=== PATIENT | female | born 1945 | race Caucasian/White ===

== ENCOUNTER → 2016-11-04 | Outpatient (CLI) | payer MEDICARE, OTHER ==
[~2016-11-04] MED LIST: CALTRATE-600 W600 MG PO; CENTRUM1 TAB PO; ELAVIL50 MG PO; FISH OIL CONC1000 MG PO; FOSAMAX 70MG TA70 MG PO; GLUCOSAMINE/CHONDROI PO; MAGNESIUM OXIDE PO
== END ==
LOC: MC.RAD 13:00
DX: Z12.31 Encounter for screening mammogram for malignant neoplasm of breast (principal)

== ENCOUNTER 2017-10-01 21:12 | Inpatient (IN) | payer MEDICARE, OTHER ==
[~2017-10-01] VITALS: Ht 172.7 cm; Wt 66.8 kg
[~2017-10-01 21:12] MED LIST changes: +GLUCOSAMINE & C1 CAP PO; -GLUCOSAMINE/CHONDROI PO
[2017-10-01] MEDS ORDERED: MAG-OX 400400 MG/TAB PO (21:33)
[2017-10-01] MEDS ORDERED: GLUCOSAMINE & C1 CA2 PO (21:33)
[2017-10-01] MEDS ORDERED: ASMANEX TW0.22 MG/A1 IH (21:34)
[2017-10-01] MEDS ORDERED: TOPROL XL 25MG25 MG PO (21:34)
[2017-10-01] MEDS ORDERED: SINGULAIR 110 MG/TAB PO (21:34)
[2017-10-01] MEDS ORDERED: VITAMIN D31000 I1 PO (21:35)
[2017-10-01] MEDS ORDERED: CALCITRATE 3151 TAB PO (21:35)
[2017-10-01] MEDS ORDERED: REFRESH PLUS 00.4 M1 OP (21:36)
[2017-10-01] MEDS ORDERED: EPA FISH OIL1 SGL PO (21:36)
[2017-10-01] MEDS ORDERED: 00186-0370-20 IH (21:37)
[2017-10-01] MEDS ORDERED: MULTIPLE VITAMI1 CAP PO (21:38)
[2017-10-01 22:40] LABS: BASO # 0.1 (0.0-0.2); BASO % 0.6 % (0.0-2.0); EOS # 0.1 (0.0-0.7); EOS % 0.7 % (0-4.0); GRAN # 8.2 (1.4-6.5); HEMATOCRIT 41.2 % (37.0-47.0); HEMOGLOBIN 13.6 g/dl (12.5-16.0); LYMPH # 1.5 (1.2-3.4); LYMPH % 13.7 % (20.0-51.0); MEAN CELL VOLUME 88 fl (80.0-100.0); MEAN CORPUSCULAR HEMOGLOBIN 29 pg (27.0-31.0); MEAN CORPUSCULAR HGB CONC 33 g/dl (33.0-37.0); MEAN PLATELET VOLUME 9.5 fl (7.4-10.4); MONO # 0.8 (0.1-0.6); MONO % 7.4 % (1.7-9.3); PLATELET COUNT 282 K/mm3 (130-400); REDCELL DISTRIBUTION WIDTH-CV 12.4 % (11.5-14.5)
[2017-10-01 22:49] LABS: COLLECTION METHOD CATHETER
[2017-10-01 22:50] LABS: BILIRUBIN,TOTAL 0.3 mg/dL (0.0-1.0); CALCIUM 9.6 mg/dL (8.4-10.2); CREATININE, serum 0.59 mg/dL (0.52-1.25); POTASSIUM 3.9 mmol/L (3.4-5.0); TOTAL PROTEIN 6.9 gm/dL (6.4-8.2)
[2017-10-01 22:54] LABS: PH 6 (5-8); SQUAMOUS EPITHELIAL None Seen /hpf; URINE APPEARANCE Clear; URINE BACTERIA Rare /hpf; URINE BILIRUBIN Negative (NEGATIVE); URINE BLOOD Negative (NEGATIVE); URINE COLOR Straw; URINE GLUCOSE Negative (NEGATIVE); URINE KETONE Negative (NEGATIVE); URINE LEUKOCYTE ESTERASE Negative (NEGATIVE); URINE NITRATE Negative (NEGATIVE); URINE PROTEIN(semi-quant) Negative (NEGATIVE); URINE RBC 0-2 /hpf; URINE UROBILINOGEN Negative (NEGATIVE)
[2017-10-01 23:25] VITALS: BP 120/54; PULSE 88; TEMP 98.2
[2017-10-01] MEDS ORDERED: AMITRIPTYLINE H50 M1 PO (23:56)
[2017-10-02] VITALS (11 sets, daily range): BP systolic 104–136; BP diastolic 50–84; PULSE 73–96; TEMP 97.5–98.2
[2017-10-02 00:47] LABS: INR 1.1 (0.8-3.0); PROTHROMBIN TIME 12.9 SECONDS (9.7-12.8)
[2017-10-02] MEDS ORDERED: PROBIOTIC GOLD1 EACH PO (01:05)
[2017-10-02 07:00] LABS: BASO # 0.1 (0.0-0.2); BASO % 0.6 % (0.0-2.0); EOS # 0.1 (0.0-0.7); GRAN # 6.7 (1.4-6.5); GRAN % 78.4 % (42.2-75.2); LYMPH # 1.1 (1.2-3.4); LYMPH % 12.5 % (20.0-51.0); MEAN CELL VOLUME 87 fl (80.0-100.0); MEAN CORPUSCULAR HEMOGLOBIN 29 pg (27.0-31.0); MEAN CORPUSCULAR HGB CONC 33 g/dl (33.0-37.0); MEAN PLATELET VOLUME 9.8 fl (7.4-10.4); MONO # 0.6 (0.1-0.6); MONO % 7.3 % (1.7-9.3); PLATELET COUNT 236 K/mm3 (130-400); RED BLOOD COUNT 4.12 M/mm3 (4.10-5.30); REDCELL DISTRIBUTION WIDTH-CV 12.4 % (11.5-14.5)
[2017-10-02 07:19] LABS: ALBUMIN 3.2 gm/dL (3.5-5.0); BILIRUBIN,TOTAL 0.5 mg/dL (0.0-1.0); CALCIUM 8.3 mg/dL (8.4-10.2); CREATININE, serum 0.52 mg/dL (0.52-1.25); POTASSIUM 3.9 mmol/L (3.4-5.0); TOTAL PROTEIN 5.9 gm/dL (6.4-8.2)
[2017-10-03] VITALS (7 sets, daily range): BP systolic 104–121; BP diastolic 46–64; PULSE 87–103; TEMP 98–99.2
[2017-10-03 06:41] LABS: HEMOGLOBIN 10.5 g/dl (12.5-16.0)
[2017-10-03 06:42] LABS: HEMATOCRIT 31.8 % (37.0-47.0)
[2017-10-04] VITALS (8 sets, daily range): BP systolic 116–172; BP diastolic 32–79; PULSE 60–111; TEMP 98.4–98.7
[2017-10-04 01:51] LABS: BASO # 0.1 (0.0-0.2); BASO % 0.8 % (0.0-2.0); EOS # 0.4 (0.0-0.7); EOS % 4.2 % (0-4.0); GRAN # 7.2 (1.4-6.5); GRAN % 70.3 % (42.2-75.2); HEMATOCRIT 36.7 % (37.0-47.0); HEMOGLOBIN 12.3 g/dl (12.5-16.0); LYMPH # 1.5 (1.2-3.4); LYMPH % 14.3 % (20.0-51.0); MEAN CELL VOLUME 86 fl (80.0-100.0); MEAN CORPUSCULAR HEMOGLOBIN 29 pg (27.0-31.0); MEAN CORPUSCULAR HGB CONC 34 g/dl (33.0-37.0); MEAN PLATELET VOLUME 9.7 fl (7.4-10.4); PLATELET COUNT 242 K/mm3 (130-400); RED BLOOD COUNT 4.25 M/mm3 (4.10-5.30); REDCELL DISTRIBUTION WIDTH-CV 12.6 % (11.5-14.5)
[2017-10-04 02:01] LABS: ALANINE AMINOTRANSFERASE 123 U/L (9-52); ALBUMIN 3.2 gm/dL (3.5-5.0); ALKALINE PHOSPHATASE 158 U/L (50-136); ANION GAP 8 mmol/L (7-16); AST,SGOT 124 U/L (15-37); BILIRUBIN,TOTAL 0.5 mg/dL (0.0-1.0); BLOOD UREA NITROGEN 8 mg/dL (7-17); CALCIUM 8.4 mg/dL (8.4-10.2); CARBON DIOXIDE 24 mmol/L (22-30); CHLORIDE 101 mmol/L (98-107); CREATININE, serum 0.55 mg/dL (0.52-1.25); GLUCOSE 139 mg/dL (74-106); MAGNESIUM 1.8 mg/dL (1.6-2.3); POTASSIUM 3.9 mmol/L (3.4-5.0); SODIUM 134 mmol/L (137-145)
[2017-10-04 02:16] LABS: TROPONIN-I < 0.012 ng/mL (0.000-0.034)
[2017-10-04 02:36] LABS: INR 1.3 (0.8-3.0); PROTHROMBIN TIME 14.6 SECONDS (9.7-12.8)
[2017-10-04 02:39] LABS: PARTIAL THROMBOPLASTIN TIME 28.1 SECONDS (26.0-37.0)
[2017-10-04 04:44] LABS: HEMOGLOBIN 11.9 g/dl (12.5-16.0)
[2017-10-04 04:46] LABS: HEMATOCRIT 34.2 % (37.0-47.0)
[2017-10-05] VITALS: BP 108/62; PULSE 75; TEMP 98.2
[2017-10-05 03:40] VITALS: BP 108/48; PULSE 73; TEMP 98.5
[2017-10-05 07:47] VITALS: BP 106/60; PULSE 74; TEMP 97.5
[2017-10-05 08:10] LABS: HEMATOCRIT 33.1 % (37.0-47.0); HEMOGLOBIN 11.1 g/dl (12.5-16.0)
[2017-10-05 08:29] LABS: ALBUMIN 2.8 gm/dL (3.5-5.0); BILIRUBIN,TOTAL 0.5 mg/dL (0.0-1.0); CALCIUM 8.4 mg/dL (8.4-10.2); CREATININE, serum 0.52 mg/dL (0.52-1.25); TOTAL PROTEIN 5.7 gm/dL (6.4-8.2)
[2017-10-05 08:47] LABS: BASO # 0.1 (0.0-0.2); BASO % 0.7 % (0.0-2.0); EOS # 0.5 (0.0-0.7); EOS % 4.9 % (0-4.0); GRAN # 6.5 (1.4-6.5); GRAN % 67.3 % (42.2-75.2); HEMATOCRIT 32.6 % (37.0-47.0); HEMOGLOBIN 11.2 g/dl (12.5-16.0); LYMPH # 1.5 (1.2-3.4); LYMPH % 15.5 % (20.0-51.0); MEAN CELL VOLUME 88 fl (80.0-100.0); MEAN CORPUSCULAR HEMOGLOBIN 30 pg (27.0-31.0); MEAN CORPUSCULAR HGB CONC 34 g/dl (33.0-37.0); MEAN PLATELET VOLUME 10.5 fl (7.4-10.4); MONO # 1.1 (0.1-0.6); MONO % 11.1 % (1.7-9.3); PLATELET COUNT 251 K/mm3 (130-400)
[2017-10-05] MEDS ORDERED: IPRATROPIUM BROM3 M1 IH (11:00)
[2017-10-05] MEDS ORDERED: ELIQUIS 5MG PO (11:00)
[2017-10-05] MEDS ORDERED: BETAPACE 80MG80 MG PO (11:02)
[2017-10-05] MEDS ORDERED: NORCO 325 MG-51 TAB PO (11:04)
[2017-10-05] MEDS ORDERED: GOOD NEIGH1200 MG/15 PO (11:05)
[2017-10-05] MEDS ORDERED: DULCOLAX S10 MG/SUPP RC (11:05)
[2017-10-05 11:44] VITALS: BP 106/41; PULSE 72; TEMP 97.5
[2017-10-05] MEDS ORDERED: CELEBREX 200MG200 MG PO (13:22)
[2017-10-05] MEDS ORDERED: NATURAL C500 MG PO (13:24)
[2017-10-05] MEDS ORDERED: OSCAL 500 TAB500 MG PO (13:25)
[2017-10-05] MEDS ORDERED: SENOKOT S 50 MG1 TAB PO (13:27)
[2017-10-05] MEDS ORDERED: NS INT FLUSH 1010 ML IV ×2 (13:58→14:06)
[2017-10-05] MEDS ORDERED: FLOVENT 110MCG7.9 GM IH (14:02)
[2017-10-05] MEDS ORDERED: ASPIRIN 32325 MG/TA1 PO (14:16)
== END 2017-10-05 12:26 | DRG 470 ==
LOC: COL.ER 21:12 → SURG 22:43
PROVIDERS: Emergency Medicine; Nurse Practitioner; Nurse Practitioner Family; Orthopaedic Surgery Sports Medicine; Physician Assistant
PROC: 0SRS0J9 Replacement of Left Hip Joint, Femoral Surface with Synthetic Substitute, Cemented, Open Approach (ICD-10-PCS; principal; 2017-10-02 08:30)
DX: S72.012A Unspecified intracapsular fracture of left femur, initial encounter for closed fracture (principal); D62 Acute posthemorrhagic anemia; W18.30XA Fall on same level, unspecified, initial encounter; J45.909 Unspecified asthma, uncomplicated; I48.0 Paroxysmal atrial fibrillation; M21.372 Foot drop, left foot; M15.9 Polyosteoarthritis, unspecified
CPT/HCPCS: 99222-AI; 99232-AI; 99233-AI; 99239; A9284; C1776; J0690; J2250; J2270; J2405; J2704; J2795; J3010; J7030; J7120

== ENCOUNTER 2017-10-05 12:45 | Inpatient (IN) | payer MEDICARE, OTHER ==
[~2017-10-05] VITALS: Ht 172.7 cm; Wt 63.8 kg
[~2017-10-05 12:45] MED LIST changes: +00186-0370-20 IH; +AMITRIPTYLINE H50 M1 PO; +ASMANEX TW0.22 MG/A1 IH; +BETAPACE 80MG80 MG PO; +CALCITRATE 3151 TAB PO; +DULCOLAX S10 MG/SUPP RC; +ELIQUIS 5MG PO; +EPA FISH OIL1 SGL PO; +GLUCOSAMINE & C1 CA2 PO; +GOOD NEIGH1200 MG/15 PO; +IPRATROPIUM BROM3 M1 IH; +MAG-OX 400400 MG/TAB PO; +MULTIPLE VITAMI1 CAP PO; +NORCO 325 MG-51 TAB PO; +PROBIOTIC GOLD1 EACH PO; +REFRESH PLUS 00.4 M1 OP; +SINGULAIR 110 MG/TAB PO; +TOPROL XL 25MG25 MG PO; +VITAMIN D31000 I1 PO
[2017-10-05] MEDS ORDERED: CELEBREX 200MG200 MG PO (13:22)
[2017-10-05] MEDS ORDERED: NATURAL C500 MG PO (13:24)
[2017-10-05] MEDS ORDERED: OSCAL 500 TAB500 MG PO (13:25)
[2017-10-05] MEDS ORDERED: SENOKOT S 50 MG1 TAB PO (13:27)
[2017-10-05] MEDS ORDERED: NS INT FLUSH 1010 ML IV ×2 (13:58→14:06)
[2017-10-05] MEDS ORDERED: FLOVENT 110MCG7.9 GM IH (14:02)
[2017-10-05] MEDS ORDERED: ASPIRIN 32325 MG/TA1 PO (14:16)
[2017-10-05 16:21] VITALS: BP 106/48; PULSE 77; TEMP 98.6
[2017-10-05 21:30] VITALS: BP 115/43; PULSE 81
[2017-10-06 06:00] VITALS: BP 106/44; PULSE 74; TEMP 97.9
[2017-10-06 16:38] VITALS: BP 109/47; PULSE 67; TEMP 97.9
[2017-10-07 04:24] VITALS: BP 113/40; PULSE 74; TEMP 98.3
[2017-10-07 07:52] LABS: ALBUMIN 2.7 gm/dL (3.5-5.0); BILIRUBIN,TOTAL 0.5 mg/dL (0.0-1.0); CALCIUM 8.4 mg/dL (8.4-10.2); CREATININE, serum 0.6 mg/dL (0.52-1.25); POTASSIUM 4.1 mmol/L (3.4-5.0); TOTAL PROTEIN 5.5 gm/dL (6.4-8.2)
[2017-10-07 16:19] VITALS: BP 112/47; PULSE 68; TEMP 98.6
[2017-10-08 06:00] VITALS: BP 108/42; PULSE 68; TEMP 98.2
[2017-10-08 16:01] VITALS: BP 110/45; PULSE 70; TEMP 98.3
[2017-10-09 06:00] VITALS: BP 114/41; PULSE 65; TEMP 98.3
[2017-10-09 16:36] VITALS: BP 106/58; PULSE 68; TEMP 98.7
[2017-10-10 04:52] VITALS: BP 107/48; PULSE 63; TEMP 98.4
[2017-10-10 15:47] VITALS: BP 103/48; PULSE 68; TEMP 98.6
[2017-10-11 06:30] VITALS: BP 114/45; PULSE 64; TEMP 97.8
[2017-10-11 15:11] VITALS: BP 108/38; PULSE 63; TEMP 98.3
[2017-10-12 05:57] VITALS: BP 118/51; PULSE 67; TEMP 98.4
[2017-10-12 15:24] VITALS: BP 105/47; PULSE 67; TEMP 97.9
[2017-10-13 04:43] VITALS: BP 102/57; PULSE 76; TEMP 98.3
[2017-10-13] MEDS ORDERED: TYLENOL 325MG325 MG PO (10:23)
[2017-10-13] MEDS ORDERED: NORCO 325 MG-51 TAB PO (10:25)
[2017-10-13] MEDS ORDERED: VITAMINC1000TA PO (16:21)
[2017-10-13] MEDS ORDERED: ELIQUIS 5MG PO (16:21)
[2017-10-13] MEDS ORDERED: BETAPACE 80MG80 MG PO (16:21)
== END 2017-10-13 18:10 | disposition home or self-care (01) | DRG 561 ==
PROVIDERS: Internal Medicine
DX: S72.012D Unspecified intracapsular fracture of left femur, subsequent encounter for closed fracture with routine healing (principal); M21.372 Foot drop, left foot; I48.0 Paroxysmal atrial fibrillation; J45.909 Unspecified asthma, uncomplicated; R63.6 Underweight; Z68.21 Body mass index [BMI] 21.0-21.9, adult
CPT/HCPCS: 99222-AI; 99232-AI; 99239

== ENCOUNTER 2017-10-19 16:18 | Emergency (ER) | payer MEDICARE, OTHER ==
[~2017-10-19] VITALS: Ht 172.7 cm; Wt 61.4 kg
[~2017-10-19 16:18] MED LIST changes: +ASPIRIN 32325 MG/TA1 PO; +CELEBREX 200MG200 MG PO; +FLOVENT 110MCG7.9 GM IH; +NATURAL C500 MG PO; +NS INT FLUSH 1010 ML IV; +OSCAL 500 TAB500 MG PO; +SENOKOT S 50 MG1 TAB PO; +TYLENOL 325MG325 MG PO; +VITAMINC1000TA PO
[2017-10-19 16:25] VITALS: BP 110/59; TEMP 99.8
[2017-10-19 17:05] LABS: BASO # 0.1 (0.0-0.2); BASO % 1.6 % (0.0-2.0); EOS # 0.1 (0.0-0.7); EOS % 1.6 % (0-4.0); GRAN # 4.7 (1.4-6.5); HEMATOCRIT 37.2 % (37.0-47.0); HEMOGLOBIN 12.3 g/dl (12.5-16.0); LYMPH # 1.8 (1.2-3.4); LYMPH % 24.3 % (20.0-51.0); MEAN CELL VOLUME 88 fl (80.0-100.0); MEAN CORPUSCULAR HEMOGLOBIN 29 pg (27.0-31.0); MEAN CORPUSCULAR HGB CONC 33 g/dl (33.0-37.0); MEAN PLATELET VOLUME 9.4 fl (7.4-10.4); MONO # 0.8 (0.1-0.6); MONO % 10.1 % (1.7-9.3); PLATELET COUNT 493 K/mm3 (130-400); RED BLOOD COUNT 4.24 M/mm3 (4.10-5.30); REDCELL DISTRIBUTION WIDTH-CV 12.8 % (11.5-14.5)
[2017-10-19 17:40] LABS: ALBUMIN 3.3 gm/dL (3.5-5.0); BILIRUBIN,TOTAL 0.2 mg/dL (0.0-1.0); CALCIUM 8.7 mg/dL (8.4-10.2); CREATININE, serum 0.53 mg/dL (0.52-1.25); POTASSIUM 4.1 mmol/L (3.4-5.0); TOTAL PROTEIN 6.1 gm/dL (6.4-8.2)
[2017-10-19 18:19] VITALS: PULSE 80
== END 2017-10-19 18:22 | disposition home or self-care (01) ==
LOC: COL.ER 16:18
PROVIDERS: Emergency Medicine
DX: M79.604 Pain in right leg (principal); R25.2 Cramp and spasm; I48.91 Unspecified atrial fibrillation; J45.909 Unspecified asthma, uncomplicated

== ENCOUNTER → 2017-12-21 | Outpatient (CLI) | payer MEDICARE, OTHER | LOC: MC.RAD 11-05 09:40 | DX: Z12.31 Encounter for screening mammogram for malignant neoplasm of breast (principal) ==

== ENCOUNTER 2018-01-07 12:08 | Emergency (ER) | payer MEDICARE, OTHER ==
[~2018-01-07] VITALS: Ht 172.7 cm; Wt 59.1 kg
[2018-01-07 12:09] VITALS: TEMP 97.6
[2018-01-07] MEDS ORDERED: NEURONTIN100 MG/CAP PO (12:20)
[2018-01-07] MEDS ORDERED: ELIQUIS 5MG PO (12:21)
[2018-01-07] MEDS ORDERED: 00186-0370-20 IH (12:21)
[2018-01-07] MEDS ORDERED: BETAPACE 120MG120 MG PO (12:21)
[2018-01-07] MEDS ORDERED: CALCIUM CITRAT200 M2 (12:22)
[2018-01-07] MEDS ORDERED: SINGULAIR 110 MG/TAB PO (12:22)
[2018-01-07] MEDS ORDERED: NATURAL MAGNES200 MG PO (12:23)
[2018-01-07] MEDS ORDERED: VITAMIND3 5000 (12:23)
[2018-01-07] MEDS ORDERED: OMEGA-3 FISH1000 MG PO (12:24)
[2018-01-07] MEDS ORDERED: MULTI VITAMINS1 TAB PO (12:24)
[2018-01-07] MEDS ORDERED: GLUCOSAMINE MSM1 TAB PO (12:24)
[2018-01-07] MEDS ORDERED: REFRESH 1 ML1 ML OP (12:25)
[2018-01-07 13:12] LABS: BASO # 0.1 (0.0-0.2); BASO % 1.3 % (0.0-2.0); EOS # 0.1 (0.0-0.7); EOS % 1.5 % (0-4.0); GRAN # 4.4 (1.4-6.5); GRAN % 61.2 % (42.2-75.2); HEMATOCRIT 41.3 % (37.0-47.0); HEMOGLOBIN 13.6 g/dl (12.5-16.0); LYMPH # 1.8 (1.2-3.4); LYMPH % 25.4 % (20.0-51.0); MEAN CELL VOLUME 86 fl (80.0-100.0); MEAN CORPUSCULAR HEMOGLOBIN 28 pg (27.0-31.0); MEAN CORPUSCULAR HGB CONC 33 g/dl (33.0-37.0); MEAN PLATELET VOLUME 9.5 fl (7.4-10.4); MONO # 0.7 (0.1-0.6); PLATELET COUNT 270 K/mm3 (130-400); REDCELL DISTRIBUTION WIDTH-CV 12.5 % (11.5-14.5)
[2018-01-07 13:22] LABS: COLLECTION METHOD CLEAN CATCH
[2018-01-07 13:26] LABS: ALANINE AMINOTRANSFERASE 27 U/L (9-52); ALBUMIN 3.5 gm/dL (3.5-5.0); ALKALINE PHOSPHATASE 70 U/L (50-136); ANION GAP 6 mmol/L (7-16); AST,SGOT 28 U/L (15-37); BILIRUBIN,TOTAL 0.4 mg/dL (0.0-1.0); BLOOD UREA NITROGEN 14 mg/dL (7-17); CALCIUM 8.7 mg/dL (8.4-10.2); CARBON DIOXIDE 31 mmol/L (22-30); CHLORIDE 107 mmol/L (98-107); CREATININE, serum 0.51 mg/dL (0.52-1.25); GLUCOSE 85 mg/dL (74-106); POTASSIUM 3.8 mmol/L (3.4-5.0); SODIUM 144 mmol/L (137-145); TOTAL PROTEIN 6.1 gm/dL (6.4-8.2)
[2018-01-07 13:31] LABS: PH 8 (5-8); SQUAMOUS EPITHELIAL None Seen /hpf; URINE APPEARANCE Clear; URINE BACTERIA None Seen /hpf; URINE BILIRUBIN Negative (NEGATIVE); URINE BLOOD Negative (NEGATIVE); URINE COLOR Straw; URINE GLUCOSE Negative (NEGATIVE); URINE KETONE Negative (NEGATIVE); URINE LEUKOCYTE ESTERASE Negative (NEGATIVE); URINE NITRATE Negative (NEGATIVE); URINE PROTEIN(semi-quant) Negative (NEGATIVE); URINE RBC 0-2 /hpf; URINE UROBILINOGEN Negative (NEGATIVE); URINE WBC 0-2 /hpf
[2018-01-07 13:39] LABS: TROPONIN-I < 0.012 ng/mL (0.000-0.034)
[2018-01-07] MEDS ORDERED: ANTIVERT 25MG25 MG PO (13:53)
[2018-01-07 14:30] VITALS: BP 115/91; PULSE 81
== END 2018-01-07 14:40 | disposition home or self-care (01) ==
LOC: COL.ER 12:08 → EDBD 12:09 → COL.ER 12:09
PROVIDERS: Emergency Medicine
DX: R42 Dizziness and giddiness (principal); I48.91 Unspecified atrial fibrillation; Z79.01 Long term (current) use of anticoagulants
CPT/HCPCS: J7030

== ENCOUNTER → 2018-01-19 | Outpatient (CLI) | payer MEDICARE, OTHER ==
[~2018-01-19] MED LIST changes: +ANTIVERT 25MG25 MG PO; +BETAPACE 120MG120 MG PO; +CALCIUM CITRAT200 M2; +GLUCOSAMINE MSM1 TAB PO; +MULTI VITAMINS1 TAB PO; +NATURAL MAGNES200 MG PO; +NEURONTIN100 MG/CAP PO; +OMEGA-3 FISH1000 MG PO; +REFRESH 1 ML1 ML OP; +VITAMIND3 5000
== END ==
LOC: COL.VAS 09:31
DX: G93.89 Other specified disorders of brain (principal); G31.9 Degenerative disease of nervous system, unspecified; I65.23 Occlusion and stenosis of bilateral carotid arteries

== ENCOUNTER 2018-01-21 14:00 | Outpatient (RCR) | payer MEDICARE, OTHER | END 2018-01-27 | disposition home or self-care (01) | LOC: MKS.ESL.PT | DX: S72.012D Unspecified intracapsular fracture of left femur, subsequent encounter for closed fracture with routine healing (principal); W18.39XD Other fall on same level, subsequent encounter; M21.372 Foot drop, left foot; Z79.01 Long term (current) use of anticoagulants; Z79.899 Other long term (current) drug therapy | CPT/HCPCS: G8978-GP; G8979-GP ==

== ENCOUNTER 2018-03-09 08:15 | Outpatient (RCR) | payer MEDICARE, OTHER | END 2018-03-10 09:59 | disposition home or self-care (01) | LOC: MKS.ESL.PT 08:15 | DX: S72.002D Fracture of unspecified part of neck of left femur, subsequent encounter for closed fracture with routine healing (principal); M21.372 Foot drop, left foot; W17.89XD Other fall from one level to another, subsequent encounter; Z79.01 Long term (current) use of anticoagulants; Z79.891 Long term (current) use of opiate analgesic; Z79.899 Other long term (current) drug therapy ==

== ENCOUNTER 2018-05-23 07:45 | Outpatient (CLI) | payer MEDICARE, OTHER ==
--- NOTE | 2018-05-21 12:00 | NUR ---
LEFT MESSAGE IN REGARDS TO PROCEDURE ON WEDNESDAY.
[~2018-05-23] VITALS: Ht 172.8 cm; Wt 62.0 kg
[2018-05-23 08:26] VITALS: BP 111/68; PULSE 53; TEMP 98.2
[2018-05-23] MEDS ORDERED: ASPIRIN E.C. 8181 MG PO (08:29)
[2018-05-23] MEDS ORDERED: CLARITIN 1010 MG/TAB PO (08:49)
[2018-05-23] MEDS ORDERED: CEPHALEXIN500 M1 PO (09:44)
[2018-05-23 09:53] VITALS: BP 123/72; PULSE 49
--- NOTE | 2018-05-23 10:05 | NUR ---
Pt discharged per ambulation.
== END 2018-05-23 11:15 | disposition home or self-care (01) ==
LOC: COL.CAR 07:45
DX: I48.0 Paroxysmal atrial fibrillation (principal); J45.909 Unspecified asthma, uncomplicated; I49.3 Ventricular premature depolarization; M19.90 Unspecified osteoarthritis, unspecified site; Z79.01 Long term (current) use of anticoagulants; Z88.5 Allergy status to narcotic agent; Z82.5 Family history of asthma and other chronic lower respiratory diseases; Z82.49 Family history of ischemic heart disease and other diseases of the circulatory system; Z82.3 Family history of stroke; Z88.2 Allergy status to sulfonamides

== ENCOUNTER → 2018-11-01 | Outpatient (CLI) | payer MEDICARE, OTHER ==
[~2018-11-01] MED LIST changes: +ASPIRIN E.C. 8181 MG PO; +CEPHALEXIN500 M1 PO; +CLARITIN 1010 MG/TAB PO
== END ==
LOC: COL.RAD 16:08
DX: R13.12 Dysphagia, oropharyngeal phase (principal)

== ENCOUNTER 2018-11-30 13:45 | Outpatient (RCR) | payer MEDICARE, OTHER ==
[2019-01-01] MEDS ORDERED: DOXYCYCLINE 10100 MG PO ×2 (07:53)
[2019-01-01] MEDS ORDERED: AMOXICILLIN 50500 MG PO ×2 (07:53)
[2019-01-02] MEDS ORDERED: AMOXICILLIN 50500 MG PO (10:58)
[2019-01-02] MEDS ORDERED: DOXYCYCLINE 10100 MG PO (10:58)
== END 2019-01-23 | disposition home or self-care (01) ==
LOC: WSST
DX: R13.12 Dysphagia, oropharyngeal phase (principal)

== ENCOUNTER 2019-01-01 02:47 | Emergency (ER) | payer MEDICARE, OTHER ==
[~2019-01-01] VITALS: Wt 56.8 kg
[2019-01-01 03:34] LABS: BASO # 0.1 (0.0-0.2); BASO % 0.6 % (0.0-2.0); EOS # 0.1 (0.0-0.7); EOS % 0.7 % (0-4.0); GRAN # 8.1 (1.4-6.5); GRAN % 74.9 % (42.2-75.2); HEMATOCRIT 42.3 % (37.0-47.0); HEMOGLOBIN 13.8 g/dl (12.5-16.0); LYMPH # 1.4 (1.2-3.4); LYMPH % 13.2 % (20.0-51.0); MEAN CELL VOLUME 89 fl (80.0-100.0); MEAN CORPUSCULAR HEMOGLOBIN 29 pg (27.0-31.0); MEAN CORPUSCULAR HGB CONC 33 g/dl (33.0-37.0); MEAN PLATELET VOLUME 9.5 fl (7.4-10.4); MONO # 1.1 (0.1-0.6); MONO % 10.2 % (1.7-9.3); PLATELET COUNT 294 K/mm3 (130-400); RED BLOOD COUNT 4.75 M/mm3 (4.10-5.30); REDCELL DISTRIBUTION WIDTH-CV 12.3 % (11.5-14.5)
[2019-01-01 03:38] LABS: INR 1.4 (0.8-3.0); PROTHROMBIN TIME 17.1 SECONDS (9.7-12.8)
[2019-01-01 03:43] LABS: ALANINE AMINOTRANSFERASE 31 U/L (9-52); ALBUMIN 3.9 gm/dL (3.5-5.0); ALKALINE PHOSPHATASE 96 U/L (50-136); ANION GAP 9 mmol/L (7-16); AST,SGOT 33 U/L (15-37); BILIRUBIN,TOTAL 0.7 mg/dL (0.0-1.0); BLOOD UREA NITROGEN 9 mg/dL (7-17); CALCIUM 9.3 mg/dL (8.4-10.2); CARBON DIOXIDE 30 mmol/L (22-30); CHLORIDE 100 mmol/L (98-107); CREATININE, serum 0.58 (0.52-1.25); GLUCOSE 115 mg/dL (74-106); LIPASE 49 U/L (23-300); MAGNESIUM 2.1 mg/dL (1.6-2.3); POTASSIUM 4.1 mmol/L (3.4-5.0); SODIUM 138 mmol/L (137-145)
[2019-01-01 03:55] LABS: TROPONIN-I < 0.012 ng/mL (0.000-0.035)
[2019-01-01] MEDS ORDERED: DOXYCYCLINE 10100 MG PO ×2 (07:53)
[2019-01-01] MEDS ORDERED: AMOXICILLIN 50500 MG PO ×2 (07:53)
[2019-01-01 08:45] VITALS: BP 93/59; PULSE 74; TEMP 98.7
[2019-01-02] MEDS ORDERED: AMOXICILLIN 50500 MG PO (10:58)
[2019-01-02] MEDS ORDERED: DOXYCYCLINE 10100 MG PO (10:58)
== END 2019-01-01 08:45 | disposition home or self-care (01) ==
LOC: COL.ER 02:47
PROVIDERS: Emergency Medicine
DX: J18.9 Pneumonia, unspecified organism (principal); I48.91 Unspecified atrial fibrillation; J45.909 Unspecified asthma, uncomplicated; Z79.01 Long term (current) use of anticoagulants
CPT/HCPCS: J0696; J1100; J7030; Q9967

== ENCOUNTER → 2020-07-05 | Outpatient (CLI) | payer MEDICARE, OTHER ==
[~2020-07-05] MED LIST changes: +AMOXICILLIN 50500 MG PO; +DOXYCYCLINE 10100 MG PO
== END ==
LOC: MC.RAD 07:07
DX: Z12.31 Encounter for screening mammogram for malignant neoplasm of breast (principal)

== ENCOUNTER → 2021-08-21 | Outpatient (CLI) | payer MEDICARE, OTHER | LOC: MC.RAD 08:00 | DX: Z12.31 Encounter for screening mammogram for malignant neoplasm of breast (principal) ==

== ENCOUNTER 2021-11-11 13:57 | Emergency (ER) | payer MEDICARE, OTHER ==
[~2021-11-11] VITALS: Ht 172.7 cm; Wt 57.7 kg
[2021-11-11 14:09] VITALS: TEMP 98.3
[2021-11-11 15:14] LABS: BASO # 0.1 K/mm3 (0.0-0.2); EOS # 0.1 K/mm3 (0.0-0.7); EOS % 1.4 % (0.0-4.0); GRAN # 3.4 K/mm3 (1.4-6.5); GRAN % 57.4 % (42.2-75.2); HEMATOCRIT 39.9 % (37.0-47.0); HEMOGLOBIN 13.3 g/dl (12.5-16.0); LYMPH # 1.7 K/mm3 (1.2-3.4); LYMPH % 29.4 % (20.0-51.0); MEAN CELL VOLUME 85 fl (80.0-100.0); MEAN CORPUSCULAR HEMOGLOBIN 28 pg (27-31); MEAN CORPUSCULAR HGB CONC 33 g/dl (33.0-37.0); MEAN PLATELET VOLUME 9.3 fl (7.4-10.4); MONO # 0.6 K/mm3 (0.1-0.6); MONO % 10.6 % (1.7-9.3); PLATELET COUNT 290 K/mm3 (130-400); RED BLOOD COUNT 4.69 M/mm3 (4.10-5.30); REDCELL DISTRIBUTION WIDTH-CV 12.7 % (11.5-14.5)
[2021-11-11 15:34] LABS: ALANINE AMINOTRANSFERASE 30 U/L (0-55); ALBUMIN 3.4 gm/dL (3.4-4.8); ALKALINE PHOSPHATASE 84 U/L (40-150); ANION GAP 9 mmol/L (7-16); AST,SGOT 19 U/L (5-34); BILIRUBIN,TOTAL 0.5 mg/dL (0.2-1.2); BLOOD UREA NITROGEN 11 mg/dL (10-20); C-REACTIVE PROTEIN 0.49 mg/dL (0.00-0.50); CALCIUM 9.4 mg/dL (8.4-10.2); CARBON DIOXIDE 27 mmol/L (23-31); CHLORIDE 105 mmol/L (98-107); GLUCOSE 103 mg/dL (70-99); POTASSIUM 4.2 mmol/L (3.5-4.5); SODIUM 141 mmol/L (136-145); TOTAL PROTEIN 6.4 gm/dL (6.2-8.1)
[2021-11-11 15:44] LABS: TROPONIN-I < 0.010 ng/mL (0.00-0.033)
[2021-11-11 17:00] VITALS: BP 108/68; PULSE 73
== END 2021-11-11 17:00 | disposition home or self-care (01) ==
LOC: COL.ER 13:57
PROVIDERS: Nurse Practitioner
DX: U07.1 COVID-19 (principal); I48.91 Unspecified atrial fibrillation; Z79.01 Long term (current) use of anticoagulants

== ENCOUNTER 2022-12-14 08:45 | Outpatient (RCR) | payer MEDICARE, OTHER | END 2022-12-19 | disposition home or self-care (01) | LOC: MKS.ESL.PT | DX: R26.89 Other abnormalities of gait and mobility (principal); R53.1 Weakness ==

== ENCOUNTER → 2023-09-24 | Outpatient (CLI) | payer MEDICARE, OTHER | LOC: MC.RAD 08:26 | DX: Z12.31 Encounter for screening mammogram for malignant neoplasm of breast (principal) ==